=== PATIENT | female | born 1950 | race Caucasian/White ===

== ENCOUNTER 2022-06-26 14:21 | Emergency (ER) | payer OTHER, BC ==
[~2022-06-26] VITALS: Ht 157.5 cm; Wt 97.1 kg
[2022-06-26 14:30] VITALS: BP_SYST 174
--- NOTE | 2022-06-26 15:23 | NUR ---
Placed in room 06 . Placed on color television console monitor, blood pressure machine and pulse oximeter. To gown for exam. Side rails up. Report given to MARCELLA WRIGHT
--- NOTE | 2022-06-26 15:49 | NUR ---
PT BIB SELD AWAKE AND ALERT AOX4, NO SOB OR DISTRESS. PT STATED SHE FEELS DIZZY X3 WEEKS. PT DENIES VOMIT. PT HAS HX OF HTN, HDL, MUSCLE SPASM.
--- NOTE | 2022-06-26 15:51 | NUR ---
MD DR BAGLEY AT BEDSIDE
[2022-06-26] MEDS ORDERED: NACL 0.9% 1,000 ML IV ONE (16:00)
[2022-06-26] MEDS ORDERED: MECLIZINE HCL 25 MG TABLET (ANITVERT) PO ONE (16:00)
[2022-06-26] MEDS ORDERED: LABETALOL 100 MG/ 20ML VIAL IVP ONE (16:00)
[2022-06-26 16:26] LABS: BASOPHILS # (AUTO) 0.1 K/uL (0.0-0.2); BASOPHILS % (AUTO) 0.5 % (0.0-2.0); EOSINOPHILS # (AUTO) 0.3 K/uL (0.0-0.4); EOSINOPHILS % (AUTO) 2.7 % (0.0-4.0); HEMATOCRIT 37.2 % (36-48); HEMOGLOBIN 11.8 g/dL (12.0-16.0); LYMPHOCYTES % (AUTO) 18.8 % (20.5-51.5); MEAN CORPUSCULAR HEMOGLOBIN 26 pg (27-31); MEAN CORPUSCULAR HGB CONC 32 % (32-36); MEAN CORPUSCULAR VOLUME 83 fL (79.0-98.0); MONOCYTES # (AUTO) 0.6 K/uL (0.0-1.0); MONOCYTES % (AUTO) 6.2 % (1.7-9.3); NEUTROPHILS # (AUTO) 7.4 K/uL (1.8-7.7); NEUTROPHILS % (AUTO) 71.8 % (40.0-70.0); PLATELET COUNT (AUTO) 345 K/uL (130-430); RED BLOOD CELL COUNT(AUTO) 4.49 MIL/uL (4.2-6.2); RED CELL DISTRIBUTION WIDTH 15.1 % (9.0-15.0); WHITE BLOOD COUNT (AUTO) 10.4 K/uL (4.8-10.8)
[2022-06-26 16:44] LABS: ANION GAP 11 (5-15); CALCIUM 9.8 mg/dL (8.4-11.0); CHLORIDE 97 mmol/L (98-107); CREATININE 0.84 mg/dL (0.55-1.30); GFR AFRICAN AMERICAN 86 mL/min (>90); GLUCOSE 126 mg/dL (70-99); UREA NITROGEN, BLOOD 11 mg/dL (8-21)
[2022-06-26 16:56] LABS: ALANINE AMINOTRANSFERASE 41 U/L (12-78); ALBUMIN 3.9 g/dL (3.4-4.8); ASPARTATE AMINOTRANSFERASE 31 U/L (10-37); TOTAL BILIRUBIN 0.5 mg/dL (0.0-1.0)
[2022-06-26 17:47] LABS: BILIRUBIN,URINE NEGATIVE (NEGATIVE); BLOOD, URINE NEGATIVE (NEGATIVE); CLARITY/URINE CLEAR (CLEAR); GLUCOSE,URINE NEGATIVE (NEGATIVE); KETONES,URINE NEGATIVE (NEGATIVE); LEUKOCYTE ESTERASE ,URINE TRACE (NEGATIVE); NITRITE, URINE NEGATIVE (NEGATIVE); PROTEIN URINE NEGATIVE (NEGATIVE); UROBILINOGEN,URINE 0.2 (0.2-1.0)
[2022-06-26 17:53] LABS: COLOR,URINE STRAW (YELLOW)
[2022-06-26 18:13] LABS: BACTERIA,URINE FEW /HPF (None Seen); MUCUS,URINE None Seen /LPF (None Seen); RBC,URINE NONE SEEN /HPF (0-3)
[2022-06-26] MEDS ORDERED: MECL-109 PO (18:23)
[2022-06-26 19:29] VITALS: BP_SYST 135
--- NOTE | 2022-06-26 19:31 | NUR ---
Patient given written and verbal discharge instructions and verbalizes understanding. ER MD DR BAGLEY discussed with patient the results and treatment provided. Patient in stable condition. ID arm band removed. IV catheter removed intact and dressing applied, no active bleeding. Rx of VERTICALM given. Patient educated on pain management and to follow up with PMD. Pain Scale 0/10. Opportunity for questions provided and answered. Medication side effect fact sheet provided.
== END 2022-06-26 19:29 | disposition home or self-care (01) ==
LOC: SED 14:21
DX: H81.399 Other peripheral vertigo, unspecified ear (principal); I10 Essential (primary) hypertension; E11.9 Type 2 diabetes mellitus without complications; E78.5 Hyperlipidemia, unspecified; Z79.899 Other long term (current) drug therapy
CPT/HCPCS: 99284; 96374; 80053; 81000; 85025; 87086; 84484; 36415; 93005; J8597; J3490